=== PATIENT | male | born 1970 | race Caucasian/White ===

== ENCOUNTER 2018-07-27 18:47 | Emergency (ER) | payer SELFPAY ==
[2018-07-27 18:47] VITALS: PULSE 75; RESP 16; TEMP 37.1; O2SAT 100; BMI 27.8
--- NOTE | 2018-07-27 20:46 | ED.VISSUMM ---
- ER Visit Summary Date of Service: 07/27/18 Chief Complaint: Rash History of Present Illness: The patient is a 48 M notes no past medical or surgical history. Patient does not have a primary care physician. States the last 1 to 2 months he has had a rash to start on both upper extremities and is spread on his back lower abdomen lower extremities. States it does itch primarily in his lower extremities. Says at times when the weather is cold he gets real dry skin. He has never had a rash like this before. Denies any fever or chills. Does not know of any obvious allergic exposure. Was seen in urgent care about a week ago was given a shot of IM steroid and placed on Bactrim. Initially he said it started get better but now is gotten worse again. He states otherwise he does not feel ill. Physical Examination: Middle-aged male no acute distress. Vital signs are stable. Afebrile. Does not look septic or toxic. HEENT exam unremarkable. Most recent memories. Neck nontender no lymphadenopathy. Lungs clear to auscultation bilaterally. Heart regular rhythm no murmur. Abdomen is soft and nontender. Patient is moving all 4 extremities. Neurovascular intact. His forearms bilaterally have a rash consistent with a contact dermatitis or allergic reaction. There is no sloughing of skin. There is no petechiae or purpura. There is no pustules or vesicles. Similar rash on the lower back lower abdomen and lower extremities but it is much worse on the forearms and arms. Neurologically he is awake and alert. Test Results: None Emergency Department Course and Treatment: Clinically I think this is an obvious severe allergic reaction. There is some redness but no warmth I do not think this is a cellulitis or secondary infection. Patient was given a dose of prednisone in the ER. Treatment Plan: Prednisone daily 40 mg for 10 days. Follow-up with a material handler 1st shift. Stop the Bactrim. Disposition: Discharge Impression: Acute diffuse, skin rash secondary to contact dermatitis and allergic reaction This note was generated with [employer] dictation software. It may contain incorrect words, spelling, and punctuation that were not noted in review of the chart prior to signing ED Disposition - Plan for ED Patient: Referrals: NOT,DEFINED [Primary Care Provider] -
--- NOTE | 2018-07-27 20:50 | ED.DCSUM_ITS ---
- ER Visit Summary Date of Service: 07/27/18 Chief Complaint: Rash History of Present Illness: The patient is a 48 M notes no past medical or surgical history. Patient does not have a primary care physician. States the last 1 to 2 months he has had a rash to start on both upper extremities and is spread on his back lower abdomen lower extremities. States it does itch primarily in his lower extremities. Says at times when the weather is cold he gets real dry skin. He has never had a rash like this before. Denies any fever or chills. Does not know of any obvious allergic exposure. Was seen in urgent care about a week ago was given a shot of IM steroid and placed on Bactrim. Initially he said it started get better but now is gotten worse again. He states otherwise he does not feel ill. Physical Examination: Middle-aged male no acute distress. Vital signs are stable. Afebrile. Does not look septic or toxic. HEENT exam unremarkable. Most recent memories. Neck nontender no lymphadenopathy. Lungs clear to auscultation bilaterally. Heart regular rhythm no murmur. Abdomen is soft and nontender. Patient is moving all 4 extremities. Neurovascular intact. His forearms bilaterally have a rash consistent with a contact dermatitis or allergic reaction. There is no sloughing of skin. There is no petechiae or purpura. There is no pustules or vesicles. Similar rash on the lower back lower abdomen and lower extremities but it is much worse on the forearms and arms. Neurologically he is awake and alert. Test Results: None Emergency Department Course and Treatment: Clinically I think this is an obvious severe allergic reaction. There is some redness but no warmth I do not think this is a cellulitis or secondary infection. Patient was given a dose of prednisone in the ER. Treatment Plan: Prednisone daily 40 mg for 10 days. Follow-up with a qualitative field project manager. Stop the Bactrim. Disposition: Discharge Impression: Acute diffuse, skin rash secondary to contact dermatitis and allergic reaction This note was generated with [employer] dictation software. It may contain incorrect words, spelling, and punctuation that were not noted in review of the chart prior to signing ED Disposition - Plan for ED Patient: Referrals: NOT,DEFINED [Primary Care Provider] -
--- NOTE | 2018-07-27 20:52 | DCINST.ED_ITS ---
ED Disposition - Plan for ED Patient: Disposition: Home or Assisted Living Instructions: ED Allergic Reaction General Other, ED Dermatitis Contact Prescriptions: Cephalexin [Keflex] 500 mg PO Q6 #30 cap Prednisone [Deltasone] 40 mg PO DAILY 10 Days tab Referrals: Ilana Still [NON-STAFF] - As soon as possible Additional Instructions: Prednisone daily 40 mg a day starting tomorrow. Follow-up with supervisor bit and shank department. Clinically I think this is an allergic reaction or contact dermatitis. Will place her on steroids daily for the next 10 days. Stop the Bactrim. We will do Keflex but I think it less likely this is a secondary infection.
[2018-07-27] MEDS: predniSONE 20 MG Tablet 60 MG PO (21:01)
[2018-07-27 21:06] VITALS: PULSE 88; RESP 16; O2SAT 100
== END 2018-07-27 21:07 | disposition home or self-care (01) ==
PROVIDERS: Emergency Provider Emergency Medicine
DX: L23.9 Allergic contact dermatitis, unspecified cause (principal)
CPT/HCPCS: 99283

== ENCOUNTER → 2018-08-20 | Outpatient (CLI) | payer BC, SELFPAY ==
[2018-07-27 18:47] VITALS: BMI 27.8
[2018-08-20 17:58] LABS: ALB/GLOB Ratio 0.8 RATIO (0.9-2.4); AST(SGOT) 37 U/L (15-37); Alanine Aminotransfer ALT/SGPT 33 U/L (16-61); Albumin, Serum 2.9 g/dL (3.2-5.0); Alkaline Phosphatase 92 U/L (45-117); Anion Gap 12 (5-15); BUN 4 mg/dL (7-18); BUN/Creat Ratio 5.2 RATIO (10-20); Chloride 108 mmol/L (98-107); Creatinine, Serum 0.78 mg/dL (0.70-1.30); EST Glomerular Filtration Rate 114 mL/min (>60); Est Glom Filt Rate - Afr Amer 137 mL/min (>60); Globulin 3.5 g/dL (2.2-4.2); Glucose 89 mg/dL (74-106); Potassium 3.6 mmol/L (3.5-5.1); Protein, Total 6.4 g/dL (6.4-8.2); Sodium Level 142 mmol/L (136-145)
[2018-08-20 18:04] LABS: Absolute Neutrophil Count 4.4 X10^3/uL (2.0-7.7); Basophil# 0.02 X10^3/uL; Basophil% 0.3 % (0-1); Eosinophil# 0.72 X10^3/uL; Eosinophils% 10.2 % (0-5); Hematocrit 40.3 % (40-54); Hemoglobin 13.2 g/dl (13.0-16.5); Lymphocyte % 14.1 % (19-41); Mean Corp Hgb Conc 32.8 g/gl (32-36); Mean Corpuscular Hgb 30.9 pg (27.0-32.0); Mean Corpuscular Volume 94.4 fL (80-94); Mean Platelet Vol. 9.6 fl (6.2-12.0); Monocyte# 0.91 X10^3/uL; Monocyte% 12.9 % (0-10); Neutrophil # 4.39 X10^3/uL (2.7-7.7); Neutrophil % 62.1 % (47-70); Platelet Count 219 K/mm3 (150-450); RBC Distribution Width CV 13.4 % (11.6-14.6); RBC Distribution Width SD 44.4 fl (35.1-43.9); Red Blood Count 4.27 M/mm3 (4.6-6.2); White Blood Count 7.1 K/mm3 (4.4-11.0)
[2018-08-20 18:05] LABS: POSITIVE COUNT NO; POSITIVE DIFFERENTIAL NO; POSITIVE MORPHOLOGY NO
[2018-08-23 05:07] LABS: HEPATITIS B SURFACE AG Negative (Negative); Hepatitis A AB, Total Positive (Negative); Hepatitis A IgM Antibody Negative (Negative); Hepatitis B Core AB IgM Negative (Negative); Hepatitis B Core Ab Total Negative (Negative); Hepatitis C Ab <0.1 s/co ratio (0.0-0.9); QNTFERON TB Mitogen Value > 10.00 IU/mL (.); QNTFERON TB Nil Value 0.04 IU/mL (.); QNTFERON TB1+ Ag Value 0.05 IU/mL (.); QNTFERON TB2+ Ag Value 0.04 IU/mL (.)
[2018-08-23 16:03] LABS: Hep B Surface Antibodies Non Reactive (.); QNTIFERON TB Positive Criteria Negative (Negative)
== END | disposition home or self-care (01) ==
LOC: MTLAB 14:39
PROVIDERS: Referring Provider Dermatology Pediatric Dermatology; Visit Provider Dermatology Pediatric Dermatology
DX: L40.0 Psoriasis vulgaris (principal)
CPT/HCPCS: 36415; 80053; 85025; 86480; 86704; 86705; 86706; 86708; 86709; 86803; 87340

== ENCOUNTER → 2019-08-14 09:21 | Outpatient (CLI) | payer BC, SELFPAY ==
[2019-08-17 03:06] LABS: QNTFERON TB Mitogen Value > 10.00 IU/mL (.); QNTFERON TB Nil Value 0.02 IU/mL (.); QNTFERON TB1+ Ag Value 0.02 IU/mL (.); QNTFERON TB2+ Ag Value 0.02 IU/mL (.)
[2019-08-17 12:03] LABS: QNTIFERON TB Positive Criteria Negative (Negative)
== END ==
PROVIDERS: Referring Provider Physician Assistant Medical; Visit Provider Physician Assistant Medical
DX: L40.0 Psoriasis vulgaris (principal); Z79.899 Other long term (current) drug therapy
CPT/HCPCS: 36415; 86480

== ENCOUNTER → 2020-10-30 10:45 | Outpatient (CLI) | payer OTHER, SELFPAY ==
[2020-10-30 12:10] LABS: Absolute Lymphocyte Count 1.22 X10^3/uL (0.83-4.51); Basophil# 0.05 X10^3/uL; Basophil% 0.9 % (0-1); Eosinophil# 0.68 X10^3/uL; Eosinophils% 12.1 % (0-5); Hemoglobin 13.6 g/dL (13.0-16.5); Lymphocyte # 1.22 X10^3/ul (0.83-4.51); Lymphocyte % 21.7 % (19-41); Mean Corp Hgb Conc 33.2 g/dL (32-36); Mean Corpuscular Hgb 31.1 pg (27.0-32.0); Mean Corpuscular Volume 93.8 fL (80-94); Mean Platelet Vol. 9.7 fl (6.2-12.0); Monocyte# 0.65 X10^3/uL; Monocyte% 11.5 % (0-10); NRBC Flagged by Analyzer 0 % (0-5); Neutrophil % 53.3 % (47-70); Platelet Count 205 K/mm3 (150-450); RBC Distribution Width CV 12.8 % (11.6-14.6); RBC Distribution Width SD 44.6 fl (35.1-43.9); Red Blood Count 4.37 M/mm3 (4.6-6.2); White Blood Count 5.6 K/mm3 (4.4-11.0)
[2020-10-30 12:55] LABS: ALB/GLOB Ratio 0.8 RATIO (0.9-2.4); AST(SGOT) 76 U/L (15-37); Alanine Aminotransfer ALT/SGPT 55 U/L (16-61); Albumin, Serum 3.6 g/dL (3.2-5.0); Alkaline Phosphatase 81 U/L (45-117); Anion Gap 6 (5-15); BUN 6 mg/dL (7-18); BUN/Creat Ratio 7.2 RATIO (10-20); Calcium,Total 8.4 mg/dL (8.5-10.1); Chloride 107 mmol/L (98-107); Creatinine, Serum 0.84 mg/dL (0.70-1.30); EST Glomerular Filtration Rate 103 mL/min (>60); Est Glom Filt Rate - Afr Amer 124 mL/min (>60); Globulin 4.3 g/dL (2.2-4.2); Glucose 76 mg/dL (74-106); Potassium 3.8 mmol/L (3.5-5.1); Protein, Total 7.9 g/dL (6.4-8.2); Sodium Level 142 mmol/L (136-145)
[2020-11-04 03:07] LABS: QNTFERON TB Mitogen Value > 10.00 IU/mL (.); QNTFERON TB Nil Value 0.02 IU/mL (.); QNTFERON TB1+ Ag Value 0.02 IU/mL (.); QNTFERON TB2+ Ag Value 0.02 IU/mL (.)
[2020-11-04 11:56] LABS: QNTIFERON TB Positive Criteria Negative (Negative)
== END ==
PROVIDERS: Referring Provider Physician Assistant Medical; Visit Provider Physician Assistant Medical
DX: L40.0 Psoriasis vulgaris (principal); L40.59 Other psoriatic arthropathy; Z79.899 Other long term (current) drug therapy
CPT/HCPCS: 36415; 80053; 85025; 86480